=== PATIENT | female | born 1965 | race Caucasian/White ===

== ENCOUNTER 2017-08-14 19:57 | Emergency (ER) | payer OTHER | END 2017-08-14 20:15 | disposition left against medical advice (07) | LOC: ER 19:57 | DX: Z53.21 Procedure and treatment not carried out due to patient leaving prior to being seen by health care provider (principal) ==

== ENCOUNTER 2017-11-05 18:49 | Emergency (ER) | payer SELFPAY ==
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
[2017-11-05] MEDS ORDERED: KETOROLAC TROMETHAMINE INJ 30 MG/ML VIAL IM ONE (20:26)
[2017-11-05] MEDS ORDERED: HYDROcodone 10MG/APAP 325MG 1 EA TAB PO ONE (20:26)
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
[2017-11-05] MEDS ORDERED: diphenhydrAMINE HCL 25 MG CAP PO ONE (20:50)
[2017-11-05 21:52] VITALS: BP 124/84; TEMP 97.5; O2SAT 98
== END 2017-11-05 21:30 | disposition home or self-care (01) ==
LOC: ER 18:49
DX: S50.11XA Contusion of right forearm, initial encounter (principal); W22.8XXA Striking against or struck by other objects, initial encounter
CPT/HCPCS: 73090; J1885; Q0163

== ENCOUNTER 2018-07-24 06:21 | Emergency (ER) | payer OTHER ==
[2018-07-24 06:34] VITALS: TEMP 98
--- NOTE | 2018-07-24 06:34 | ED.PDOC ---
History of Present Illness - General Chief Complaint: Dental/Mouth Stated Complaint: tooth pain Time Seen by Provider: 07/24/18 06:34 Source: patient Exam Limitations: no limitations - History of Present Illness Initial Comments: Juana Osorio 52 y/o female stated that she had sharp/stabbing dental pain for the last 2 days and made dental appointment but wants 100 dollars upfront before seeing her.Denies chronic medical problem. Timing/Duration: yesterday EENT Location: dental Prearrival Treatment: no prearrival treatment Presenting Symptoms: dental pain Improving Factors: nothing Worsening Factors: eating Associated Symptoms: other - see hpi Allergies/Adverse Reactions: Allergies Hydrocodone Allergy (Verified 04/21/18 21:59) Morphine Allergy (Verified 04/21/18 21:59) Rash Severe rash Penicillins Allergy (Verified 04/21/18 21:59) Hives as well as causes vomiting Home Medications: Ambulatory Orders Clindamycin HCl 300 mg PO TID 7 Days #21 cap 04/21/18 Escitalopram Oxalate [Lexapro] 20 mg PO DAILY 04/21/18 Acetaminophen W/ Codeine [Tylenol W/ CODEINE #3] 1 ea PO Q8HRS PRN 5 Days #15 18 Clindamycin HCl 300 mg PO BID 10 Days #20 cap 07/24/18 Tramadol HCl [Conzip] 100 mg PO Q6HRS PRN #30 cap 07/24/18 Review of Systems - Review of Systems Constitutional: States: no symptoms reported EENTM: States: other - dental pain Respiratory: States: no symptoms reported Cardiology: States: no symptoms reported Gastrointestinal/Abdominal: States: no symptoms reported Genitourinary: States: no symptoms reported Past Medical History (General) - Patient Medical History Hx Seizures: No Hx Stroke: No Hx Dementia: No Hx Asthma: No Hx of COPD: No Hx Cardiac Disorders: No Hx Congestive Heart Failure: No Hx Pacemaker: No Hx Hypertension: No Hx Thyroid Disease: No Hx Diabetes: No Hx Gastroesophageal Reflux: No Hx Renal Disease: No Hx Cancer: No Hx Hepatitis C: No Hx MRSA: No Surgical History: cholecystectomy, other - hysterectomy - Vaccination History Hx Tetanus, Diphtheria Vaccination: Yes Hx Influenza Vaccination: No - Social History Hx Tobacco Use: Yes Hx Chewing Tobacco Use: No Hx Alcohol Use: No Hx Substance Use: No Hx Substance Use Treatment: No Hx Depression: No Hx Physical Abuse: No Hx Emotional Abuse: No Hx Suspected Abuse: No - Female History Patient is a Female of Child Bearing Age (10 -59 yrs old): No Patient : No Family Medical History - Family History Father Living Status: Still Living Hx Family Congestive Heart Failure: Yes Hx Cardiac Disease: Yes Mother Family History: Unknown Physical Exam - Physical Exam General Appearance: Alert, Anxious, No apparent distress Eye Exam: bilateral normal Ear Exam: bilateral ear: auricle normal, canal normal, TM normal Nasal Exam: normal inspection Throat Exam: pharynx normal, dental tenderness - right 3rd molar with cavities multiple Neck: non-tender, supple Cardiovascular/Respiratory: regular rate, rhythm, no M/R/G, normal peripheral pulses Abdominal Exam: non-tender Neurologic: alert, oriented x 3 Skin Exam: normal color, warm/dry Progress - Progress Progress: 07/24/18 06:42 Vital Signs - 8 hr 07/24/18 06:30 Temperature 98 F Pulse Rate [ 70 left] Respiratory 16 Rate Blood Pressure 144/100 [left] O2 Sat by Pulse 99 Oximetry Departure - Departure Clinical Impression: Pulp and periapical tissue disease, Chronic dental pain Time of Disposition: 06:49 Disposition: Discharge to Home or Self Care Condition: Good Departure Forms: ED Discharge - Pt. Copy, Patient Portal Self Enrollment Instructions: Tooth Decay, Adult (DC), Dental Pain (DC), Dental Pain, Soft Diet Diet: other - SOFT DIET UNTIL BETTER Prescriptions: Tramadol HCl [Conzip] 100 mg PO Q6HRS PRN #30 cap PRN Reason: Pain Clindamycin HCl 300 mg PO BID 10 Days #20 cap Home Medications: Ambulatory Orders Clindamycin HCl 300 mg PO TID 7 Days #21 cap 04/21/18 Escitalopram Oxalate [Lexapro] 20 mg PO DAILY 04/21/18 Acetaminophen W/ Codeine [Tylenol W/ CODEINE #3] 1 ea PO Q8HRS PRN 5 Days #15 04/26/18 Clindamycin HCl 300 mg PO BID 10 Days #20 cap 07/24/18 Tramadol HCl [Conzip] 100 mg PO Q6HRS PRN #30 cap 07/24/18 Additional Instructions: Need to make appointment with Dentist [facility] [address] [phone];[facility] [address] [place] [address]
[2018-07-24] MEDS ORDERED: CLINDAMYCIN PHOSPHATE 150 MG/ML VIAL IM ONE (06:43)
[2018-07-24] MEDS ORDERED: CLINDAMYCIN HCL CAP 150 MG CAP PO ONE (06:43)
[2018-07-24] MEDS ORDERED: HYDROmorphone HCL INJ 2 MG/ML VIAL IM ONE (06:44)
[2018-07-24 07:09] VITALS: BP 124/84; O2SAT 98
== END 2018-07-24 07:12 | disposition home or self-care (01) ==
LOC: ER 06:21
DX: K04.90 Unspecified diseases of pulp and periapical tissues (principal); K02.9 Dental caries, unspecified; G89.29 Other chronic pain; Z87.891 Personal history of nicotine dependence; Z88.0 Allergy status to penicillin; Z88.5 Allergy status to narcotic agent
CPT/HCPCS: J1170; J3490

== ENCOUNTER 2018-09-05 21:41 | Emergency (ER) | payer OTHER ==
[2018-09-05] MEDS ORDERED: KETOROLAC TROMETHAMINE INJ 30 MG/ML VIAL IM ONE (22:03)
[2018-09-05] MEDS ORDERED: LIDOCAINE 1% W/ EPINEPHRINE 20 ML VIAL INJ ONE (22:03)
[2018-09-05] MEDS ORDERED: CLINDAMYCIN HCL CAP 150 MG CAP PO ONE (22:04)
[2018-09-05] MEDS ORDERED: LIDOCAINE HCL 2% (MOUTH-THROAT) 15 ML UD ONE ×2 (22:07→22:21)
[2018-09-05] MEDS ORDERED: LIDOCAINE HCL 2% (MOUTH-THROAT) 15 ML UD MT ONE ×2 (22:10→22:31)
[2018-09-05 22:58] VITALS: TEMP 98.1
--- NOTE | 2018-09-05 22:58 | ED.PDOC ---
History of Present Illness - General Chief Complaint: Dental/Mouth Stated Complaint: left upper toothache for the past hour Time Seen by Provider: 09/05/18 21:45 Source: patient Exam Limitations: no limitations - History of Present Illness Initial Comments: Patient presents with acute on chronic left mandibular molar pain. She says she is waiting for a dentist after her insurance starts on September 10. The pain is the left mandibular first and second molars, which are fractured. The pain is throbbing and radiates to her left cheek. It is constant, worse with movement and eating, better with rest. She was treated for this one month ago with clindamycin and tramadol. No fevers. No other complaints. the fractures are old. Severity: moderate Improving Factors: rest Worsening Factors: eating, movement Associated Symptoms: other - as in HPI Allergies/Adverse Reactions: Allergies Hydrocodone Allergy (Verified 04/21/18 21:59) Morphine Allergy (Verified 09/05/18 22:58) Rash Severe rash Penicillins Allergy (Verified 04/21/18 21:59) Hives as well as causes vomiting Home Medications: Ambulatory Orders Clindamycin HCl 300 mg PO TID 7 Days #21 cap 04/21/18 Escitalopram Oxalate [Lexapro] 20 mg PO DAILY 04/21/18 Acetaminophen W/ Codeine [Tylenol W/ CODEINE #3] 1 ea PO Q8HRS PRN 5 Days #15 04/26/18 Clindamycin HCl 300 mg PO BID 10 Days #20 cap 07/24/18 Tramadol HCl [Conzip] 100 mg PO Q6HRS PRN #30 cap 07/24/18 Clindamycin HCl 300 mg PO Q8HR #21 cap 09/05/18 Tramadol HCl 50 mg PO Q4HR #30 tab 09/05/18 Review of Systems - Review of Systems Constitutional: States: no symptoms reported EENTM: States: see HPI Respiratory: States: no symptoms reported Cardiology: States: no symptoms reported Gastrointestinal/Abdominal: States: no symptoms reported Genitourinary: States: no symptoms reported Musculoskeletal: States: no symptoms reported Skin: States: no symptoms reported Neurological: States: no symptoms reported Endocrine: States: no symptoms reported Hematologic/Lymphatic: States: no symptoms reported Past Medical History (General) - Patient Medical History Hx Seizures: No Hx Stroke: No Hx Dementia: No Hx Asthma: No Hx of COPD: No Hx Cardiac Disorders: No Hx Congestive Heart Failure: No Hx Pacemaker: No Hx Hypertension: No Hx Thyroid Disease: No Hx Diabetes: No Hx Gastroesophageal Reflux: No Hx Renal Disease: No Hx Cancer: No Hx Hepatitis C: No Hx MRSA: No - Vaccination History Hx Tetanus, Diphtheria Vaccination: Yes Hx Influenza Vaccination: No - Social History Hx Tobacco Use: Yes Hx Chewing Tobacco Use: No Hx Alcohol Use: No Hx Substance Use: No Hx Substance Use Treatment: No Hx Depression: No Hx Physical Abuse: No Hx Emotional Abuse: No Hx Suspected Abuse: No - Female History Patient : No Family Medical History - Family History Father Living Status: Still Living Hx Family Congestive Heart Failure: Yes Hx Cardiac Disease: Yes Mother Family History: Unknown Physical Exam - Physical Exam General Appearance: Alert, Obvious distress Ears, Nose, Throat: other - poor dentition. Left mandibular molars 1 and 2 are fractured and TTP. No exudate or visible abscess. Neck: non-tender, full range of motion, supple Respiratory: lungs clear, normal breath sounds Cardiovascular/Chest: regular rate, rhythm Gastrointestinal/Abdominal: normal bowel sounds, non tender, soft Progress - Progress Progress: 09/05/18 22:59 Lidocaine mouth rinse given. Lidocaine with epinephrine was then injected into the left mandibular fossa as well as the gingiva of the two fractured molars. Excellent local anesthesia was obtained. Patient was also given Toradol 30 mg IM x one and Clindamycin 600 mg po x one. Sent home with RX for tramadol and clindamycin and directions to see her dentist after the 1st. Care instructions given. E.R. warnings given. Questions were elicited and answered. The patient voiced understanding and agreement with the plan. Departure - Departure Clinical Impression: Toothache Disposition: Discharge to Home or Self Care Condition: Good Departure Forms: ED Discharge - Pt. Copy, Patient Portal Self Enrollment Diet: resume usual diet Activity: increase activity as tolerated Prescriptions: Tramadol HCl 50 mg PO Q4HR #30 tab Clindamycin HCl 300 mg PO Q8HR #21 cap Home Medications: Ambulatory Orders Clindamycin HCl 300 mg PO TID 7 Days #21 cap 04/21/18 Escitalopram Oxalate [Lexapro] 20 mg PO DAILY 04/21/18 Acetaminophen W/ Codeine [Tylenol W/ CODEINE #3] 1 ea PO Q8HRS PRN 5 Days #15 04/26/18 Clindamycin HCl 300 mg PO BID 10 Days #20 cap 07/24/18 Tramadol HCl [Conzip] 100 mg PO Q6HRS PRN #30 cap 07/24/18 Clindamycin HCl 300 mg PO Q8HR #21 cap 09/05/18 Tramadol HCl 50 mg PO Q4HR #30 tab 09/05/18 Additional Instructions: Take medications as directed. Return to the E.R. for increasing pain or fever. See your dentist as soon as possible.
[2018-09-05 23:02] VITALS: BP 110/74; O2SAT 98
[2018-09-05] MEDS ORDERED: traMADol HCL 50 MG (ER DISP) # 6 TABS PO ONE (23:06)
== END 2018-09-05 23:17 | disposition home or self-care (01) ==
LOC: ER 21:41
DX: S02.5XXA Fracture of tooth (traumatic), initial encounter for closed fracture (principal); Z87.891 Personal history of nicotine dependence; X58.XXXA Exposure to other specified factors, initial encounter; Y92.9 Unspecified place or not applicable; Z88.5 Allergy status to narcotic agent; Z88.0 Allergy status to penicillin
CPT/HCPCS: 64400; J1885

== ENCOUNTER 2018-10-18 13:59 | Emergency (ER) | payer OTHER ==
[2018-10-18 14:12] VITALS: TEMP 97.4
--- NOTE | 2018-10-18 14:18 | ED.PDOC ---
History of Present Illness - General Chief Complaint: Back Pain or Injury Stated Complaint: right mid back pain Time Seen by Provider: 10/18/18 14:10 Source: patient, RN notes reviewed, family Additional Information: 52 YEAR OLD PRESENTS WITH ABDOMINAL PAIN IN THE RIGHT LOWER QUADRANT RADIATED FROM THE RIGHT FLANK DURATION 1 WEEK CONSTANT INCREASED FREQUENCY OF URINATION APPITITE FAIR NO FEVER CHILLS NO DYSURIA NO VOMITNG DIARRHEA PHYSICAL TENDER RIGHT CVA AND TENDER RLQ BS NORMAL - History of Present Illness Timing/Duration: 1 week Severity: moderate Improving Factors: immobilization Worsening Factors: movement Associated Symptoms: loss of appetite Allergies/Adverse Reactions: Allergies Hydrocodone Allergy (Verified 04/21/18 21:59) Morphine Allergy (Verified 09/05/18 22:58) Rash Severe rash Penicillins Allergy (Verified 04/21/18 21:59) Hives as well as causes vomiting Home Medications: Ambulatory Orders Escitalopram Oxalate [Lexapro] 20 mg PO BEDTIME 04/21/18 Ciprofloxacin [Cipro] 500 mg PO BID #20 tab 10/18/18 Tramadol HCl [Ultram] 50 mg PO Q6H PRN #30 tab 10/18/18 metroNIDAZOLE [Flagyl] 500 mg PO Q8H #30 tab 10/18/18 Review of Systems - Review of Systems Constitutional: States: no symptoms reported EENTM: States: no symptoms reported Respiratory: States: no symptoms reported Cardiology: States: no symptoms reported Gastrointestinal/Abdominal: States: see HPI Genitourinary: States: see HPI Skin: States: no symptoms reported Neurological: States: no symptoms reported Endocrine: States: no symptoms reported Hematologic/Lymphatic: States: no symptoms reported Past Medical History (General) - Patient Medical History Hx Seizures: No Hx Stroke: No Hx Dementia: No Hx Asthma: No Hx of COPD: No Hx Cardiac Disorders: No Hx Congestive Heart Failure: No Hx Pacemaker: No Hx Hypertension: No Hx Thyroid Disease: No Hx Diabetes: No Hx Gastroesophageal Reflux: No Hx Renal Disease: No Hx Cancer: No Hx of HIV: No Hx Hepatitis C: No Hx MRSA: No Surgical History: cholecystectomy, Hysterectomy, other - Vaccination History Hx Tetanus, Diphtheria Vaccination: Yes Hx Influenza Vaccination: No - Social History Hx Tobacco Use: Yes Hx Chewing Tobacco Use: No Hx Alcohol Use: No Hx Substance Use: No Hx Substance Use Treatment: No Hx Depression: No Hx Physical Abuse: No Hx Emotional Abuse: No Hx Suspected Abuse: No - Female History Patient : No Family Medical History - Family History Father Family History: No Known Living Status: Still Living Hx Family Congestive Heart Failure: Yes Hx Cardiac Disease: Yes Mother Family History: Unknown Physical Exam - Physical Exam General Appearance: Alert, Comfortable Ears, Nose, Throat: hearing grossly normal, normal ENT inspection, normal pharynx Neck: non-tender, full range of motion, supple, normal inspection Respiratory: chest non-tender, lungs clear, normal breath sounds, no respiratory distress, no accessory muscle use Cardiovascular/Chest: normal peripheral pulses, regular rate, rhythm, no edema, no gallop, no JVD Peripheral Pulses: radial,right: 2+, radial,left: 2+, femoral,right: 2+, femoral,left: 2+, popliteal,right: 2+, popliteal,left: 2+ Gastrointestinal/Abdominal: non tender, no organomegaly, no pulsatile mass, tenderness Back Exam: CVA tenderness (R) Extremity: normal range of motion, non-tender, normal inspection 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, no motor/sensory deficits, alert, normal mood/affect, oriented x 3 Progress - Results/Orders Results/Orders: Laboratory Tests 10/18/18 10/18/18 10/18/18 14:34 14:34 14:36 WBC 6.6 RBC 5.08 Hgb 14.9 Hct 44.5 MCV 87.6 MCH 29.4 MCHC 33.5 RDW 13.4 Plt Count 273 MPV 7.4 Absolute Neuts (auto) 3.30 Absolute Lymphs (auto) 2.60 Absolute Monos (auto) 0.50 Absolute Eos (auto) 0.20 Absolute Basos (auto) 0.10 Neutrophils % 49.6 Lymphocytes % 38.7 Monocytes % 7.4 Eosinophils % 3.4 Basophils % 0.9 Sodium 138 Potassium 3.6 Chloride 102 Carbon Dioxide 26 Anion Gap 13.6 BUN 6 L Creatinine 0.63 BUN/Creatinine Ratio 9.5 L Random Glucose 108 H Serum Osmolality 273.8 L Calcium 9.0 Total Bilirubin 0.5 AST 29 ALT 32 Alkaline Phosphatase 83 Serum Total Protein 7.2 Albumin 4.1 Globulin 3.1 Albumin/Globulin Ratio 1.3 Urine Color Yellow Urine Appearance Clear Urine pH 5.5 Ur Specific Sandwich 1.020 Urine Protein Negative Urine Glucose (UA) Negative Urine Ketones Negative Urine Blood Negative Urine Nitrite Negative Urine Bilirubin Negative Urine Urobilinogen 0.2 Ur Leukocyte Esterase Negative Urine RBC 0 Urine WBC 0-1 Ur Epithelial Cells 0-1 Urine Bacteria Rare Hyaline Casts 0-[address] report sigmoid diverticulitis pt has signs or symptoms to suggest diverticulitis i have explained this to the patient will emperically treat as diverticulitis Departure - Departure Clinical Impression: Abdominal pain, Sigmoid diverticulitis Time of Disposition: 15:43 Disposition: Discharge to Home or Self Care Condition: Good Departure Forms: ED Discharge - Pt. Copy, Patient Portal Self Enrollment Instructions: DI for Low Back Pain Prescriptions: Ciprofloxacin [Cipro] 500 mg PO BID #20 tab metroNIDAZOLE [Flagyl] 500 mg PO Q8H #30 tab Tramadol HCl [Ultram] 50 mg PO Q6H PRN #30 tab PRN Reason: Pain Home Medications: Ambulatory Orders Escitalopram Oxalate [Lexapro] 20 mg PO BEDTIME 04/21/18 Ciprofloxacin [Cipro] 500 mg PO BID #20 tab 10/18/18 Tramadol HCl [Ultram] 50 mg PO Q6H PRN #30 tab 10/18/18 metroNIDAZOLE [Flagyl] 500 mg PO Q8H #30 tab 10/18/18
[2018-10-18] MEDS: KETOROLAC TROMETHAMINE INJ 30 MG/ML VIAL IV ONE (14:39)
[2018-10-18] MEDS: fentaNYL CITRATE INJ 50 MCG/ML AMP IV ONE (15:23)
--- NOTE | 2018-10-18 15:27 | CT ---
EXAM DESCRIPTION: CT abdomen and pelvis with contrast CLINICAL HISTORY: Severe abdomen pain. Right flank and lower quadrant pain COMPARISON: 11/15/2009 TECHNIQUE: Spiral CT with multiplanar reformatted images. Intravenous iodinated nonionic contrast This exam was performed according to our departmental dose-optimization program, which includes automated exposure control, adjustment of the mA and/or kV according to patient size and/or use of iterative reconstruction technique. FINDINGS: Visualized lung bases are clear. Heart size is normal Normal appearance of the liver. Previous cholecystectomy. No biliary duct dilation Normal appearance of the spleen, pancreas, adrenal glands and kidneys. No renal, ureteral or bladder calculus or mass lesion No mass lesion or inflammatory process seen in the stomach, small or large intestine. A few small diverticula of the sigmoid colon. The sigmoid is nondistended over a short segment axial image 77 through 81. No surrounding inflammation, extraluminal air or fluid Previous hysterectomy. No pelvic soft tissue mass, adenopathy or free fluid. Omentum, small bowel mesentery and retroperitoneum are normal. No anterior abdominal wall/inguinal hernia No acute bony abnormality IMPRESSION: Sigmoid diverticulosis without diverticulitis Electronically signed by: Geraldo Mcbride MD 10/18/2018 3:24 PM [employer]
[2018-10-18 15:35] VITALS: BP 123/82
[2018-10-18 16:04] VITALS: O2SAT 95
== END 2018-10-18 16:00 | disposition home or self-care (01) ==
LOC: ER 13:59
DX: K57.32 Diverticulitis of large intestine without perforation or abscess without bleeding (principal); Z87.891 Personal history of nicotine dependence; Z90.49 Acquired absence of other specified parts of digestive tract; Z88.5 Allergy status to narcotic agent; Z88.0 Allergy status to penicillin
CPT/HCPCS: 36415; 74177; 80053; 81001; 85025; J1885; J3010

== ENCOUNTER 2018-11-01 05:39 | Day surgery (SDC) | payer OTHER ==
[2018-11-01] MEDS ORDERED: LIDOCAINE 1% 10 ML VIAL INJ ONE (07:00)
[2018-11-01] MEDS ORDERED: PROPOFOL 200 MG/20 ML VIAL IV ONE (07:00)
[2018-11-01] MEDS ORDERED: LACTATED RINGERS 1,000 ML ONE (07:29)
[2018-11-01] MEDS ORDERED: ONDANSETRON INJ 4 MG/2 ML VIAL ONE (12:56)
[2018-11-01] MEDS ORDERED: SODIUM CHLORIDE 0.9% 100ML 100 ML IVPB ONE (13:05)
[2018-11-01] MEDS ORDERED: PROMETHAZINE HCL INJ 25 MG/ML VIAL ONE (13:05)
[2018-11-01] MEDS ORDERED: ACETAMINOPHEN IV 1000MG 100 ML ONE (13:20)
[2018-11-01] MEDS ORDERED: ACETAMINOPHEN IV 1000 MG/100 ML BOTTLE IVPB ONE (13:24)
--- NOTE | 2018-11-01 13:46 | OP ---
DATE OF PROCEDURE: 11/01/18 PREPROCEDURE DIAGNOSIS: 1. Abdominal pain. 2. Colorectal cancer screening. POSTPROCEDURE DIAGNOSIS: 1. Large hiatal hernia. 2. Erosive gastropathy. 3. Internal hemorrhoids. 4. Diverticulosis in the sigmoid colon. PROCEDURE: 1. Esophagogastroduodenoscopy. 2. Colonoscopy. SURGEON: Elbert Nascimento MD COMPLICATIONS: No immediate complications. SEDATION: The patient was sedated via IV propofol by the Anesthesia Department. CONSENT: Prior to the procedure, risks, benefits and alternatives to the therapy were discussed with the patient. The risks included bleeding, infection, perforation and . The patient agreed to the procedure and signed a consent. PREPROCEDURE ANESTHESIA ASSESSMENT: An examination revealed no contraindication to sedation. Airway examination demonstrated a Mallampati class type 2, ASA grade assessment type 2. EGD: The patient was placed in the left lateral decubitus position. Bite block was placed in the mouth. The Olympus endoscope was introduced through the oropharynx, esophagus, stomach and the second portion of the duodenum. The scope was retracted and the mucosa visualized. The entirety of the exam was performed under direct visualization. Retroflexion was performed in the stomach. The patient tolerated the procedure well. FINDINGS: 1. Large hiatal hernia was found in the distal esophagus. 2. Diaphragmatic pinch was found at 39 cm and the gastric folds were found at 35 cm from the incisors. 3. Significant erosions were found in the stomach. Biopsies were obtained with cold forceps. 4. The duodenum was normal. COLONOSCOPY: The patient was placed in the left lateral decubitus position and a rectal examination was performed. The rectal examination was within normal limits. The Olympus colonoscope was passed in the anus, rectum, traversing the colon to the level of the cecum as identified by the appendiceal orifice. The scope was retracted and the mucosa was visualized. The entirety of the exam was performed under direct visualization. Retroflexion was performed in the rectum. Preparation quality was good. The withdrawal time was greater than 6 minutes. The patient tolerated the procedure well. FINDINGS: 1. Moderate diverticulosis with associated narrowing was found in the distal sigmoid colon. Minimal amount of erythema was found in this area. 2. Small non-bleeding internal hemorrhoids were found on retroflexion. 3. Otherwise unremarkable examination. RECOMMENDATION: 1. Return the patient home. 2. Resume previous diet. 3. Followup pathology results. 4. Increase fiber intake. 5. Citrucel twice a day. 6. Return to my office in the next 1 to 2 weeks for followup. 7. Findings were discussed with the patient and family members. [id number]
--- NOTE | 2018-11-01 15:10 | CT ---
Procedure: CT ABDOMEN PELVIS WITH IV CONTRAST Exam Date: 11/01/2018 Ordering Provider: YANCY MITCHELL Clinical Indication: POST OP PAIN FOLLOWING COLONOSCOPY/EGD Comparison: 10/18/2018 TECHNIQUE: 5 mm images were taken through the abdomen and pelvis after the administration of nonionic intravenous contrast material. Oral contrast was not administered. Coronal and sagittal reformatted images were generated. This exam was performed according to our departmental dose optimization program which includes use of automated exposure control, adjustment of the mA and/or kV according to patient size and/or use of iterative reconstruction technique. FINDINGS: Lower chest: Nonacute Abdomen: Liver and biliary system: Liver is unremarkable. Prior cholecystectomy. Spleen: Unremarkable Pancreas: Unremarkable Adrenal glands: Unremarkable Kidneys, ureters, bladder: No hydronephrosis in either kidney. Ureters are unremarkable. Bladder is largely decompressed. Lymph nodes: No lymphadenopathy. Retroperitoneum, abdominal wall, peritoneal cavity: No free air. There is no ascites. Vessels: No abdominal aortic aneurysm. Pelvis: Lymph nodes: No lymphadenopathy Bowel: Colonic diverticulosis without evidence of diverticulitis. Air-fluid levels in the nondistended colon. No findings to suggest acute appendicitis. No bowel obstruction. Pelvic organs: Prior hysterectomy. Bones: Nonacute IMPRESSION: 1. No acute findings. 2. Air-fluid levels in the nondistended colon. 3. Colonic diverticulosis without evidence of diverticulitis. Electronically signed by: Thom Ribera MD 11/01/2018 3:07 PM [employer]IAL [employer]UDIES DEPARTMENT CHAIR
[2018-11-01 16:10] VITALS: BP 125/93; TEMP 98.3; O2SAT 94
== END 2018-11-01 15:55 | disposition home or self-care (01) ==
LOC: AMB 05:39
PROVIDERS: ATTEND Internal Medicine Gastroenterology
DX: K29.00 Acute gastritis without bleeding (principal); K29.50 Unspecified chronic gastritis without bleeding; B96.81 Helicobacter pylori [H. pylori] as the cause of diseases classified elsewhere; K44.9 Diaphragmatic hernia without obstruction or gangrene; K31.89 Other diseases of stomach and duodenum; K64.8 Other hemorrhoids; K57.30 Diverticulosis of large intestine without perforation or abscess without bleeding; K21.9 Gastro-esophageal reflux disease without esophagitis; K59.00 Constipation, unspecified; E66.01 Morbid (severe) obesity due to excess calories; F17.210 Nicotine dependence, cigarettes, uncomplicated; Z68.31 Body mass index [BMI] 31.0-31.9, adult; Z90.710 Acquired absence of both cervix and uterus; Z90.49 Acquired absence of other specified parts of digestive tract; Z88.0 Allergy status to penicillin; Z88.5 Allergy status to narcotic agent; Z88.8 Allergy status to other drugs, medicaments and biological substances; Z79.899 Other long term (current) drug therapy
CPT/HCPCS: 00813; 43239; 45378; 74177; 80053; J2405; J2550; J3490; J7050; J7120

== ENCOUNTER 2018-11-09 21:04 | Emergency (ER) | payer OTHER, SELFPAY ==
[2018-11-09] MEDS ORDERED: diphenhydrAMINE HCL 50 MG/ML VIAL IV ONE (21:17)
[2018-11-09] MEDS ORDERED: methylPREDNISolone SODIUM SUC 125 MG/2 ML VIAL IV ONE (21:17)
[2018-11-09] MEDS ORDERED: EPINEPHrine HCL AMP 1 MG/ML AMP SUBCU ONE (21:17)
--- NOTE | 2018-11-09 21:39 | ED.PDOC ---
History of Present Illness - General Chief Complaint: Allergic Reaction Time Seen by Provider: 11/09/18 21:16 Source: patient Exam Limitations: no limitations - History of Present Illness Initial Comments: SHE ATE A SALAD AND NOW FEELS LIKE A GOLF BALL IS ON HER THROUGHT. SHE HAS DEVELOPED SON FACIAL HIVES AND IS ITCHING. O2 SAT AT 96 %, NO OBVIOUS STRIDOR NOTED. Timing/Duration: 1 hour Severity: moderate Activities at Onset: other - EATING Possible Cause: no prior episodes Improving Factors: nothing Worsening Factors: nothing Associated Symptoms: anxiety, cough Respiratory Risk Factors: no cause identified Allergies/Adverse Reactions: Allergies Hydrocodone Allergy (Verified 04/21/18 21:59) Morphine Allergy (Verified 09/05/18 22:58) Rash Severe rash Penicillins Allergy (Verified 04/21/18 21:59) Hives as well as causes vomiting Home Medications: Ambulatory Orders predniSONE 20 mg PO DAILY #5 tab 11/09/18 Review of Systems - Review of Systems Constitutional: States: other - ITCHING EENTM: States: throat swelling Respiratory: States: cough, short of breath Cardiology: States: no symptoms reported Gastrointestinal/Abdominal: States: no symptoms reported Genitourinary: States: no symptoms reported Musculoskeletal: States: no symptoms reported Skin: States: rash, other - HIVES Neurological: States: no symptoms reported Endocrine: States: no symptoms reported Past Medical History (General) - Patient Medical History Hx Seizures: No Hx Stroke: No Hx Dementia: No Hx Asthma: No Hx of COPD: No Hx Cardiac Disorders: No Hx Congestive Heart Failure: No Hx Pacemaker: No Hx Hypertension: No Hx Thyroid Disease: No Hx Diabetes: No Hx Gastroesophageal Reflux: No Hx Renal Disease: No Hx Cancer: No Hx of HIV: No Hx Hepatitis C: No Hx MRSA: No - Vaccination History Hx Tetanus, Diphtheria Vaccination: Yes Hx Influenza Vaccination: No - Social History Hx Tobacco Use: Yes Hx Chewing Tobacco Use: No Hx Alcohol Use: No Hx Substance Use: No Hx Substance Use Treatment: No Hx Depression: No Hx Physical Abuse: No Hx Emotional Abuse: No Hx Suspected Abuse: No - Female History Patient : No Family Medical History - Family History Father Family History: No Known Living Status: Still Living Hx Family Congestive Heart Failure: Yes Hx Cardiac Disease: Yes Mother Family History: Unknown Physical Exam - Physical Exam General Appearance: Alert, Anxious, Well Developed, Well Groomed, Well Hydrated, Well Nourished Eyes, Ears, Nose, Throat Exam: PERRL/EOMI, pharyngeal erythema Neck: non-tender, full range of motion, supple, normal inspection Respiratory: chest non-tender, lungs clear, normal breath sounds, no respiratory distress, no accessory muscle use Cardiovascular/Chest: normal peripheral pulses, regular rate, rhythm, no edema, no gallop Gastrointestinal/Abdominal: normal bowel sounds, non tender, soft, no organ omegaly, no pulsatile mass Rectal Exam: deferred Extremity: normal range of motion Neurologic: manager technology II-XII nml as tested, alert, oriented x 3 Skin Exam: rash Lymphatic: no adenopathy Progress - Progress Progress: 11/09/18 22:43 reassess: MUCH IMPROVED- ASYMTOMATIC Departure - Departure Clinical Impression: Urticaria Allergic reaction Qualifiers: Encounter type: initial encounter Qualified Code(s): T78.40XA - Allergy, unspecified, initial encounter Time of Disposition: 22:44 Disposition: Discharge to Home or Self Care Condition: Good Departure Forms: ED Discharge - Pt. Copy, Patient Portal Self Enrollment Instructions: Angioedema (DC), Hives (DC) Diet: resume usual diet Prescriptions: predniSONE 20 mg PO DAILY #5 tab Home Medications: Ambulatory Orders predniSONE 20 mg PO DAILY #5 tab 11/09/18
[2018-11-09 22:14] VITALS: TEMP 99.1
[2018-11-09 23:04] VITALS: BP 121/70; O2SAT 98
== END 2018-11-09 23:05 | disposition home or self-care (01) ==
LOC: ER 21:04
DX: L50.0 Allergic urticaria (principal); T78.40XA Allergy, unspecified, initial encounter; Z87.891 Personal history of nicotine dependence; Z88.5 Allergy status to narcotic agent; Z88.0 Allergy status to penicillin
CPT/HCPCS: J1200; J2930